=== PATIENT | male | born 1985 | race Caucasian/White ===

== ENCOUNTER 2023-12-23 07:08 | Emergency (ER) | payer MEDICAID ==
[~2023-12-23] VITALS: Ht 170.2 cm; Wt 90.0 kg
[2023-12-23 07:23] VITALS: RESP 16; O2SAT 97
[2023-12-23 08:10] LABS: BASOPHILS % 0.8 % (0.0-2.0); EOSINOPHILS % 2.1 % (0.0-5.0); MEAN CORPUSCULAR HEMOGLOBIN 32.6 pg (28.0-32.0); MEAN CORPUSCULAR HGB CONC 34.1 g/dL (31.0-37.0); MEAN CORPUSCULAR VOLUME 95.4 fL (80.0-94.0); MEAN PLATELET VOLUME 7.7 fl (7.4-10.4); NEUTROPHILS % 66.1 % (40.0-76.0); PLATELET 187 x1000/uL (130-400); RED BLOOD CELL COUNT 4.92 mill/uL (4.7-6.1); RED CELL DISTRIBUTION WIDTH 13.6 % (11.6-14.6); WHITE BLOOD COUNT 11.6 x1000/uL (4.5-11.0)
[2023-12-23 08:16] LABS: CHLORIDE 110 mEq/L (98-107); POTASSIUM 4.4 mEq/L (3.5-5.1); SODIUM 141 mEq/L (136-145)
[2023-12-23 08:17] LABS: CARBON DIOXIDE 25 mEq/L (21-32)
[2023-12-23 08:18] LABS: CALCIUM 9.2 mg/dL (8.7-10.4)
[2023-12-23 08:22] LABS: CREATININE 1.1 mg/dL (0.6-1.3); GLUCOSE 102 mg/dL (70-105)
[2023-12-23 08:23] LABS: UREA NITROGEN BLOOD 12 mg/dL (9-23)
[2023-12-23 08:24] LABS: ALANINE AMINOTRANSFERASE 90 IU/L (10-49); ALBUMIN 4.4 g/dL (3.2-4.8); ASPARTATE AMINOTRANSFERASE 70 IU/L (<34); BILIRUBIN DIRECT 0.2 mg/dL (<=3.0)
[2023-12-23 08:25] LABS: BILIRUBIN TOTAL 0.4 mg/dL (0.1-1.0)
[2023-12-23] MEDS ORDERED: DICYCLOMINE 10 MG/5 ML ORAL SYR PO STA (08:36)
[2023-12-23] MEDS ORDERED: TOPUD PO (08:46)
[2023-12-23] MEDS ORDERED: POLY17PO3 PO (08:46)
[2023-12-23] MEDS: MAGNESIUM/ALUMINUM HYDROXIDE/SIMETHICONE 30ML UDC PO STA (08:48)
[2023-12-23] MEDS: ONDANSETRON 4MG ODT PO STA (08:49)
[2023-12-23] MEDS: DICYCLOMINE HCL 10MG CAPSULE PO NR (08:54)
[2023-12-23] MEDS: LACTULOSE 20G/30ML UDC PO ONE (08:54)
[2023-12-23 08:57] VITALS: BP 136/79; PULSE 68; TEMP 98.3
== END 2023-12-23 09:05 | disposition home or self-care (01) ==
LOC: ER 07:08
DX: R10.32 Left lower quadrant pain (principal); R11.0 Nausea
CPT/HCPCS: 99284; 80076; 80048; 83690; 85025; 36415; 74018; Q0162